=== PATIENT | female | born 1980 | race Caucasian/White ===

== ENCOUNTER → 2018-08-30 | Outpatient (CLI) | payer BC ==
[~2018-08-30] MED LIST: ACE3; ACE500 PO; AUG875 PO; ETON1VAG7 VG; IBU600 PO; LEVO25TA57 PO; PANT40SU3 PO; TOPI25CA PO; TRA50 PO
== END ==
LOC: LAB 13:38
PROVIDERS: ATTEND Obstetrics & Gynecology
DX: E03.9 Hypothyroidism, unspecified (principal)
CPT/HCPCS: 36415; 84443

== ENCOUNTER 2018-11-11 01:44 | Observation (INO) | payer BC ==
[2018-11-11] VITALS (16 sets, daily range): BP systolic 94–128; BP diastolic 54–94
[~2018-11-11] VITALS: Ht 165.1 cm; Wt 112.5 kg
[2018-11-11 06:20] LABS: PLATELET COUNT, AUTOMATED 304 K/uL (150-450)
[2018-11-11] MEDS ORDERED: NORMOSOL R SOLN(*) 1000 ML BAG 1,000 ML IV PRN (06:30)
[2018-11-11] MEDS ORDERED: FAMOTIDINE 20 MG TAB PO ONE (06:30)
[2018-11-11] MEDS ORDERED: MIDAZOLAM 2 MG/2 ML VIAL IVP PRN (06:30)
[2018-11-11] MEDS ORDERED: PHENAZOPYRIDINE 200 MG TAB PO ONE (06:30)
[2018-11-11] MEDS ORDERED: LIDOCAINE/SOD BICARB 8.4% SYR ID ONE (06:30)
[2018-11-11] MEDS ORDERED: ceFAZolin(*) 2GM/D5W 50ML 50 ML IVPB ONE (06:30)
[2018-11-11] MEDS ORDERED: BUPIV/EPI 0.25% 1:200,000 50ML INFIL ONE (06:36)
[2018-11-11] MEDS ORDERED: fentaNYL CITR 250 MCG/5 ML AMP ONE (06:55)
[2018-11-11] MEDS ORDERED: DEXAMETHASONE SOD PHOS 10MG/ML ONE (06:56)
[2018-11-11] MEDS ORDERED: PROPOFOL EMUL(*) 10MG/ML 20 ML 20 ML ONE (06:56)
[2018-11-11] MEDS ORDERED: ONDANSETRON 4 MG/2 ML VIAL ONE (06:56)
[2018-11-11] MEDS ORDERED: LIDOCAINE MPF 1% 5 ML VIAL ONE (06:56)
[2018-11-11] MEDS ORDERED: KETAMINE HCL 200 MG/20 ML MDV ONE (06:57)
[2018-11-11] MEDS ORDERED: ACETAMINOPHEN(*)1000 MG/100 ML 100 ML IVPB ONE (07:10)
[2018-11-11] MEDS ORDERED: HALOPERIDOL LACT 5 MG/ML VIAL IM ONE (07:11)
[2018-11-11] MEDS ORDERED: HYDROmorphone HCL 2 MG/ML SDV ONE ×2 (07:46→09:56)
[2018-11-11] MEDS ORDERED: SUGAMMADEX SOD 500 MG/5 ML SDV ONE (07:47)
[2018-11-11] MEDS ORDERED: KETOROLAC 30 MG/ML VIAL ONE (07:52)
[2018-11-11] MEDS ORDERED: fentaNYL CITR 100 MCG/2 ML AMP ONE ×2 (09:31→09:46)
--- NOTE | 2018-11-11 09:31 | Post Operative Note ---
Operative Note - MANAGER STRATEGIC MARKETING Operative Day Date: Nov 11, 2018 Time: 09:30 Physicians Surgeon: Yonatan Marriage Performer: Ignacio Anesthesia: Willis VALADEZ Diagnosis Pre-Op Diagnosis: Menorrhagia Post-Op Diagnosis: Same Procedure Procedure(s): CRISTIANO LOERA, dx cysto Specimen Removed:(Maybe N/A): Uterus, bilat tubes Fluids Fluids: IVF: 1100cc UOP: 200cc Estimated Blood Loss: 20cc TRISTAN HERMOSILLO MD Nov 11, 2018 09:31
[2018-11-11] MEDS ORDERED: METOCLOPRAMIDE 10 MG/2 ML SDV IV PRN (09:35)
[2018-11-11] MEDS ORDERED: ONDANSETRON 4 MG/2 ML VIAL IV PRN (09:35)
[2018-11-11] MEDS ORDERED: SIMETHICONE 80 MG CHEW CHEW PRN (09:35)
[2018-11-11] MEDS ORDERED: OXYC-865 PO (09:35)
[2018-11-11] MEDS ORDERED: ACETAMINOPHEN 325 MG TAB PO PRN (09:35)
[2018-11-11] MEDS ORDERED: IBUP800T37 PO (09:35)
[2018-11-11] MEDS ORDERED: MAGNESIUM HYDROXIDE* 30ML UDCP PO PRN (09:35)
[2018-11-11] MEDS ORDERED: HYDROmorphone HCL 2 MG/ML SDV IVP PRN (09:35)
--- NOTE | 2018-11-11 11:20 | OPERATIVE REPORT 1 ---
EVENT DATE: November 11, 2018 SURGEON: Angelina Tam MD ANESTHESIOLOGIST: Jordy Pedro MD ANESTHESIA: General endotracheal tube. MANAGER FINANCE: Abdirizak Pierre DO PREOPERATIVE DIAGNOSES 1. Menorrhagia. 2. Dysmenorrhea. POSTOPERATIVE DIAGNOSES 1. Menorrhagia. 2. Dysmenorrhea. PROCEDURES PERFORMED 1. Robotic-assisted total laparoscopic hysterectomy with bilateral salpingectomy. 2. Diagnostic cystoscopy. SPECIMENS REMOVED Uterus and bilateral fallopian tubes. IV FLUIDS 1100 cc. URINE OUTPUT 200 cc. ESTIMATED BLOOD LOSS 20 cc. INDICATIONS FOR PROCEDURE This patient is a 38-year-old 2, para 2 who presented with complaints of painful and heavy menses. She has already undergone an endometrial ablation which was unsuccessful and her menses have returned. She has now requested definitive management with the above said procedure. Please see history and physical for full details. DESCRIPTION OF PROCEDURE The patient was properly identified and taken to the operating room. She was placed under general anesthesia and then placed in the dorsal lithotomy position. She was prepped and draped in usual fashion for a laparoscopic- assisted vaginal procedure. The patient received Ancef preoperatively for prophylactic antibiotics. Her SCDs were on and functioning. A bimanual exam was performed, which revealed an approximately 8 cm anteverted uterus. A speculum was placed to visualize the cervix, which was multiparous without lesion. The anterior lip was grasped with a tenaculum. The cervix was difficult to dilate due to the history of ablation. Cervical os finder was utilized to help identify the cervical canal. This was achieved without difficulty. The cervix was then serially dilated to 5 mm using Hegar dilators with a moderate amount of resistance. A medium VCare uterine manipulator was then requested and assembled. A suture was placed through the anterior lip of the cervix through the os and then from the os through the posterior lip of the cervix. This was then passed through the VCare. The VCare was placed into the uterine fundus and the tip was insufflated. This remained in place and colpotomy ring was advanced to be flush against the cervix and the vaginal mucosa. This was then tied down with the 0 Vicryl suture. The pneumo-occluder was advanced into the vagina and secured. A Valdivia catheter was then placed to drain the bladder. The patient was placed in supine position and attention was turned to the laparoscopic portion of the procedure. The infraumbilical region was infiltrated with 0.25% Marcaine with epinephrine. A Veress needle was tested and proven to be functioning. An 8 mm incision was made infraumbilically. A Veress needle was then passed through this incision into the abdominal cavity using the double click test. Pneumoperitoneum was then achieved. The 8 mm trocar was introduced through the infraumbilical midline incision under direct visualization using a [employer] laparoscope. Once entry into the abdominal cavity was confirmed, the remaining location of the trocars were planned with two on the right and two on the left. The two 8 mm trocars were inserted under direct visualization on the patient's right side after infiltration of 0.25% Marcaine and making 8 mm incision with the scalpel on the patient's left side and 11 mm incision was made at the most lateral incision and an 8 mm incision on the more medial. These two ports were then introduced under direct visualization. At this time, the patient was placed into Trendelenburg position and the Qompium robotic system was prepped for docking. It was then brought in and aligned. Endoscope port was docked. The endoscope was then introduced and targeting was performed on the uterus. The remaining arms were docked without difficulty. The fenestrated bipolar grasper and monopolar scissors were then advanced under direct visualization into the pelvis and energy was connected. At this time, I was able to break sterile attire and sit at the console to initiate the hysterectomy. Examination of the pelvis revealed no significant adhesions or abnormalities. In order to initiate the salpingectomy on the patient's right side, the right fallopian tube was elevated and the mesosalpinx was cauterized and transected using cautery. The tube was completely removed and completely and removed through the accessory port. The same procedure was performed on the left with removal of the left fallopian tube without difficulty. The left round ligament was then cauterized and transected as well as the left uteroovarian ligament. This allowed opening of the broad ligament. The anterior leaflet of the broad ligament was open and then brought across the midline above the colpotomy ring in order to separate the vesicouterine peritoneum. At this time, the manipulator did perforate through the midline fundus of the uterus. This was, therefore, manipulated to achieve appropriate visualization throughout the rest of the procedure. The posterior peritoneum was then dissected further off the uterus on the left side down to the cervix. The uterine vessels were then identified, cauterized and transected in order to allow the colpotomy to be performed. Attention was then turned to the patient's right side, where the right ureter was identified and noted to be far away from the planned incision. The right round ligament was cauterized and transected as well as the right uteroovarian ligament. The broad ligament was then opened on the right side and anterior leaflet was brought down to the midline where the prior vesicouterine peritoneum on the other side had been dissected. The posterior leaflet was then also brought down to the level of the colpotomy ring. The uterine vessels were then visualized and cauterized. These were taken down with monopolar scissors to a level where the colpotomy would need to be performed. At this time, the bladder flap was further delineated and brought down without difficulty to a safe area in order to allow for closure of the vaginal cuff later. The colpotomy was then initiated anteriorly with identification of the colpotomy ring. The colpotomy was then continued in circumferential fashion until the entire colpotomy was completed. The uterus was then delivered through the vagina without difficulty. A bulb grenade was placed in the vagina to maintain pneumoperitoneum. The cuff was copiously irrigated and noted to be hemostatic. An 0 Vicryl suture was utilized in a [id number] manner to reapproximate the right corner of the vaginal cuff. A VLoc suture was then initiated on the left side to approximate the corner of the cuff following to the right with an unmarked suture. Once this was completely closed, the suture was followed backwards with one additional suture towards the right. Once this was completely closed, copious irrigation was again performed, revealing adequate hemostasis. Using the Ap-Fritz device, the fascia of the payroll human resources assistant port was then closed with an 0 Vicryl using robotic assistance. All of the robotic arms were then undocked and the instruments were removed. Pneumoperitoneum was relieved and the 11 mm fascia was tied down. All five skin incisions were reapproximated using 4-0 Monocryl and closed with Dermabond. The Valdivia catheter was removed from the bladder. A cystoscope was assembled and introduced through the urethra and the bladder under direct visualization. The entire bladder was evaluated and noted to be normal without any lesions or sutures. Bilateral ureteral jets were noted with Pyridium-stained urine. The cystoscope was then removed and the Valdivia catheter was replaced. The patient tolerated the procedure well and recovered in the Post-Anesthesia Care Unit. All sponge, needle and instrument counts were correct at the end of the procedure. SIS
[2018-11-11] MEDS ORDERED: KETOROLAC 30 MG/ML VIAL IVP SCH (12:00)
--- NOTE | 2018-11-11 12:33 | OB/GYN Progress Note ---
OB Subjective Progress Notes Subjective Pt is doing well so far. She is sleepy, but pain is controlled. OB Objective Physical Exam Vital Signs Date Time Temp Pulse Resp B/P (MAP) Pulse Ox O2 Delivery O2 Flow Rate FiO2 11/11/18 10:50 87 Room Air 11/11/18 10:50 97.9 90 16 116/69 (85) General Appearance: Alert/Awake/No Acute Distress Neurological: No Gross deficits Eyes: Normal Extraocular Movement & Vison Cardiovascular: Normal Rhythm & Peripheral Pulses, Regular Rate and Rhythm Respiratory: No Respiratory Distress, Clear to Auscultation Abdomen: Soft, Non-Tender, Non-Distended Incision: Clean, Dry, Intact Musculoskeletal: No Weakness/Pain Extremities: No Cyanosis,Clubbing or Edema Integumentary: Skin Intact without Lesions or Rash Psychological: Alert & Oriented X3, Appropriate Mood & Affect Result Diagram: 11/11/18 0611 Assessment and Plan Problems: (1) History of robot-assisted laparoscopic hysterectomy Assessment & Plan: POD#0 s/p CRISTIANO LOERA, dx cysto. Routine orders. TRISTAN HERMOSILLO MD Nov 11, 2018 12:33
[2018-11-11] MEDS: DLR(*) 1000 ML BAG 1,000 ML IV PRN ×2 (13:56→20:34)
[2018-11-11] MEDS: KETOROLAC 30 MG/ML VIAL IVP SCH ×2 (15:09→20:34)
[2018-11-11] MEDS: DOCUSATE CALCIUM 240 MG CAP PO SCH (20:34)
[2018-11-11] MEDS: FAMOTIDINE 20 MG TAB PO SCH (20:34)
[2018-11-12 02:55] VITALS: BP 105/67
[2018-11-12] MEDS: KETOROLAC 30 MG/ML VIAL IVP SCH (02:55)
[2018-11-12 05:43] LABS: PLATELET COUNT, AUTOMATED 258 K/uL (150-450)
[2018-11-12 07:37] VITALS: BP 102/70
[2018-11-12] MEDS ORDERED: INFLUENZA VIRUS VAC 0.5ML SYR IM ONLY ONE (09:00)
[2018-11-12] MEDS ORDERED: IBUPROFEN 800 MG TAB PO PRN (09:00)
--- NOTE | 2018-11-12 09:17 | OB/GYN Progress Note ---
OB Subjective Progress Notes Subjective Doing good this morning. Had [place] out early am and has voided X 1 since then. Tolerating regular diet. Ambulatory. Pain controlled with PO pain medications. No bleeding. GI: NEG Nausea, NEG Vomiting, NEG Flatus, NEG Bowel Movement : Voiding Well Pain: Mild, Comfortable, Tolerating PO Pain Meds Neurological: No Headache, No Other Eyes: No Visual Disturbances OB Objective Physical Exam Vital Signs Date Time Temp Pulse Resp B/P (MAP) Pulse Ox O2 Delivery O2 Flow Rate FiO2 11/12/18 07:37 98.3 60 17 102/70 (81) 92 Room Air 11/12/18 02:55 1.0 Intake and Output 11/12/18 07:00 Intake Total 5649 ml Output Total 2950 ml Balance 2699 ml Intake Oral 1700 ml IV Total 3949 ml Output Urine Total 2950 ml # Voids 1 General Appearance: Alert/Awake/No Acute Distress Neurological: No Gross deficits Eyes: Normal Extraocular Movement & Vison Cardiovascular: Normal Rhythm & Peripheral Pulses, Regular Rate and Rhythm Respiratory: No Respiratory Distress, Clear to Auscultation Abdomen: Soft, Non-Tender, Non-Distended Incision: Clean, Dry, Intact, Dermabond : Normal Musculoskeletal: No Weakness/Pain Extremities: No Cyanosis,Clubbing or Edema Integumentary: Skin Intact without Lesions or Rash Psychological: Alert & Oriented X3, Appropriate Mood & Affect Result Diagram: 11/12/18 0515 Assessment and Plan EYE TECHNICIAN Assessment: Stable EYE TECHNICIAN Plan: Discharge Home Today Problems: (1) History of robot-assisted laparoscopic hysterectomy Assessment & Plan: Plan for discharge today. Needs to void again and ambulate and she can be discharged. TRUONG MENDEZ DO Nov 12, 2018 09:17
[2018-11-12] MEDS: FAMOTIDINE 20 MG TAB PO SCH (09:18)
[2018-11-12] MEDS: DOCUSATE CALCIUM 240 MG CAP PO SCH (09:18)
--- NOTE | 2018-11-12 09:18 | OB/GYN Discharge Summary ---
Discharge Summary Reason for Hosp/Final Diag: (1) History of robot-assisted laparoscopic hysterectomy Hospital Course & Plan: Pt underwent RATLH with out any difficulty. Remained in the hospital for 1 day for pain control. Once she was ambulatory, voiding, and tolerating regular diet she was discharged home. Lates Vital Signs Vital Signs Date Time Temp Pulse Resp B/P (MAP) Pulse Ox O2 Delivery O2 Flow Rate FiO2 11/12/18 07:37 98.3 60 17 102/70 (81) 92 Room Air 11/12/18 02:55 1.0 Weight (Pounds): 248 Result Diagram: 11/12/18 0515 Condition: Improved Discharge: Home Home Meds Active Scripts Oxycodone Hcl/Acetaminophen (PERCOCET 5-325 MG TABLET) 1 Each Tablet, 1 TAB PO Q4-6H PRN for pain, #30 TAB 0 Refills Prov:TRISTAN TAM MD 11/11/18 Levothyroxine Sodium (SYNTHROID) 25 Mcg Tablet, 25 MCG PO QDAY for 30 Days, #30 TAB 5 Refills 1 tab PO daily Prov:TRISTAN TAM MD 08/31/18 Follow up with: [facility] [phone], Dr. Tam [phone] Follow up in: 2 wks PO Discharge Diet: As Tolerates, Increase Fluid Intake Discharge Activity: As Tolerates, No Heavy Lifting > 10lb, Pelvic Rest TRUONG MENDEZ DO Nov 12, 2018 09:18
[2018-11-12 11:45] VITALS: BP 111/67
[2018-11-12 12:18] VITALS: Ht 165.1 cm; Wt 112.5 kg
== END 2018-11-12 09:17 | disposition home or self-care (01) ==
LOC: OR 01:44 → PED 10:45 → INTOOBSV 10:45
PROVIDERS: ADMIT Obstetrics & Gynecology; ATTEND Obstetrics & Gynecology
DX: N92.0 Excessive and frequent menstruation with regular cycle (principal); N94.6 Dysmenorrhea, unspecified
CPT/HCPCS: 36415; 58571; 84703; 85025; 88307; G0378; J0131; J1100; J1170; J1630; J1885; J2001; J2250; J2405; J2704; J3010; J3490; S2900; J0690